=== PATIENT | female | born 2000 | race Caucasian/White ===

== ENCOUNTER 2020-03-19 12:00 | Emergency (ER) | payer BC, SELFPAY ==
[2020-03-19] VITALS (7 sets, daily range): BP systolic 105–133; BP diastolic 48–70; PULSE 52–86; RESP 14–18; TEMP 36.8; O2SAT 98–100
--- NOTE | ~2020-03-19 | CT_ITS ---
EXAMINATION: CT brain wo con INDICATION: Dizziness COMPARISON: None TECHNIQUE: Standard unenhanced head CT. The dose-length product (DLP) was 605.33 mGy-cm. The mA was a djusted according to patient size. Iterative reconstruction technique was employed. FINDINGS: There is no intracranial hemorrhage, acute infarction, or abnormal mass lesion. The ventric les are normal. There is no abnormal mass effect or midline shift. The liu-white matter differentiat ion is normal. The basal cisterns are patent. The orbits are normal. The paranasal sinuses, mastoids and calvarium are normal. IMPRESSION: 1. No acute intracranial abnormality. Reviewed, dictated and finalized at location A.
--- NOTE | ~2020-03-19 | XR_ITS ---
EXAMINATION: XR chest 2V DATE: 03/19/2020 12:46 INDICATION: Dizziness TECHNIQUE: PA and lateral views of the chest were obtained. COMPARISON: Chest radiograph dated 02/13/2017 FINDINGS: The lungs remain clear with no focal airspace opacities, pulmonary edema, pleural effusion or pneumot horax. The cardiomediastinal silhouette is normal. Visualized bones and soft tissues are unremarkable . Cholecystectomy clips in the right upper quadrant. IMPRESSION: 1. No acute cardiopulmonary disease. Reviewed, dictated and finalized at location A.
--- NOTE | ~2020-03-19 | US_ITS ---
EXAMINATION: US pelvic complete w TV DATE: 03/19/2020 13:27 INDICATION: Abnormal uterine bleeding TECHNIQUE: Multiple transabdominal and endovaginal sonographic images of the pelvis were obtained. COMPARISON: None. FINDINGS: The retroverted uterus measures 10.4 x 6.0 x 7.5 cm. Shadowing from a curved foreign body is seen wit hin the cephalad aspect of the vaginal vault along the posterior margin of the cervix consistent with a reported NUVA ring implant. The endometrial complex measures 15 mm in thickness. The right ovary m easures 2.7 x 1.6 x 1.6 cm. Vascular flow is identified in the right ovary on color Doppler. The left ovary is not visualized. There is no free fluid in the pelvis. IMPRESSION: 1. Normal uterus and right ovary. Left ovary is not visualized. 2. Foreign body consistent with NUVA ring contraceptive device in the vaginal vault. Reviewed, dictated and finalized at location A. IMPRESSION: 1. Normal uterus and right ovary. Left ovary is not visualized. 2. Foreign body consistent with NUVA ring contraceptive device in the vaginal v leon.
[2020-03-19 12:35] LABS: Basophils Percent Auto 0.5 % (0.2-1.2); Eosinophils Absolute Auto 0.1 K/mm3 (0-0.3); Eosinophils Percent Auto 1.3 % (0-4.4); Hematocrit 40.9 % (37.0-47.0); Hemoglobin 13.4 g/dL (12.0-15.0); Immature Granulocyte Absolute 0.02 K/mm3 (0.00-0.031); Immature Granulocyte Percent A 0.2 % (0-0.5); Lymphocytes Absolute Auto 2.36 K/mm3 (0.9-3.2); Lymphocytes Percent Auto 28.3 % (18.3-44.2); Mean Corpuscular HGB Conc 32.8 g/dl (32-36); Mean Corpuscular Hemoglobin 27.6 pg (26-34); Mean Corpuscular Volume 84.3 fl (80-100); Mean Platelet Volume 10.1 fl (7.4-10.4); Monocytes Absolute Auto 0.5 K/mm3 (0.1-0.6); Neutrophils Absolute Auto 5.3 K/mm3 (1.3-6.7); Neutrophils Percent Auto 63.7 % (45.5-73.1); Platelet Count Result 367 k/mm3 (150-375); Red Blood Count 4.85 M/mm3 (4.2-5.4); Red Cell Distribution Width 13.9 % (11.5-14.5); White Blood Count 8.3 K/mm3 (4.5-10.0)
--- NOTE | 2020-03-19 12:36 | ECG_ITS ---
Measurements Intervals [place] Rate: 59 P: 20 [place]: 175 QRS: 71 QRSD: 93 T: 45 QT: 403 QTc: 399 Interpretive Statements SINUS BRADYCARDIA WITH SINUS ARRHYTHMIA BORDERLINE ECG Electronically Signed On 03-19-2020 13:46:23 CDT by Juan Islas D.O.
[2020-03-19 12:39] LABS: Add Urine Microscopic? YES; Appearance Urine Clear (Clear); Bilirubin Urine Negative (Negative); Blood Urine Negative (Negative); Color Urine Yellow (Yellow); Glucose Urine UA Negative (Negative); Ketones Urine Negative (Negative); Leukocyte Esterase Ur Negative LEU/UL (Negative); Mucus Urine Few /lpf; Nitrate Urine Negative (Negative); Protein Urine 1+ mg/dL (Negative); RBC Urine 0-2 /hpf (0-2); Specific Grav Ur 1.026 (1.001-1.035); Squamous Epithelial Cell Urine Occasional /hpf (Few); Urobilinogen Urine Negative mg/dL (<2.0); WBC Urine 0-3 /hpf
[2020-03-19 12:49] LABS: INR 0.9
[2020-03-19 12:50] LABS: Partial Thromboplastin Time 25.8 SECONDS (22.3-36.8)
--- NOTE | 2020-03-19 12:51 | ED.PREGNANCY ---
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 Reports she had a baby 4 months ago vaginally. Reports for the last 2 weeks she has been having vaginal bleeding. Reports she does use the NuvaRing so this is abnormal for her. Reports last night she started to have pelvic cramping and noted she passed some tissue in the toilet. Thought that she might have had a miscarriage. Reports today she has had some dizziness, especially with certain head movement. Reports she has had problems with dizziness in the past. Denies fever, vision changes, vomiting, numbness or weakness. <Erna Santiago PA-C - Last Filed: 03/19/20 18:18> Related Data Allergies/Adverse reactions: Allergies Allergy/AdvReac Type Severity Reaction Status Date / Time No Known Allergies Allergy Unknown Verified 03/19/20 12:16 <SAMY Christine Last Filed: 03/19/20 18:18> Review of Systems Review of Systems: Narrative: CONSTITUTIONAL: Denies fever EYES: Denies visual changes CARDIOVASCULAR: Denies chest pain RESPIRATORY: Denies cough or dyspnea. GASTROINTESTINAL: Denies vomiting GENITOURINARY: Denies dysuria or hematuria. NEUROLOGIC: Denies headache, numbness, or weakness. <SAMY Christine Last Filed: 03/19/20 18:18> All systems reviewed & are unremarkable except as noted in HPI and below <Erna Santiago PA-C - Last Filed: 03/19/20 18:18> [facility] Past Medical History Medical History: Medical History (Updated 03/19/20 @ 18:15 by Erna Santiago PA-C) History of gastroesophageal reflux (GERD) <Erna Santiago PA-C - Last Filed: 03/19/20 18:18> Surgical History Surgical History: Surgical History (Updated 03/19/20 @ 12:59 by Erna Santiago PA-C) History of cholecystectomy <Erna Santiago PA-C - Last Filed: 03/19/20 18:18> Social History Social History: Social History (Updated 03/19/20 @ 12:59 by Erna Santiago PA-C) Smoking status: Current every day smoker Substance use type: marijuana Gender identity (if verbalized by the patient): Female <Erna Santiago PA-C - Last Filed: 03/19/20 18:18> Exam Narrative: Exam Narrative: GENERAL: Well-appearing, obese, and in no acute distress. HEAD: Normocephalic, atraumatic. EYES: PERRLA and EOMI. ENT: Nares clear, no rhinorrhea or epistaxis. Mucous membranes moist. Oropharynx without tonsillar hypertrophy exudate or other lesions. Bilateral TMs pearly liu non-bulging NECK: Supple. No adenopathy or masses. CHEST: Clear to auscultation. No respiratory distress. No wheezes rales or rhonchi HEART: Regular rate and rhythm. No murmur heard. Normal peripheral pulses. EXTREMITIES: Normal range of motion. No edema. SKIN: Warm, dry, no rash. NEURO: No focal deficits. Alert and oriented x3. Cranial nerves II through XII grossly intact. Normal [id number]. Normal [id number]-[id number]. Normal gait PSYCH: Normal mood and affect PELVIC: Mild redness and irritation of the labia majora. Normal appearing cervix, closed. Scant blood in the vaginal vault. No CMT <Erna Santiago PA-C - Last Filed: 03/19/20 18:18> Course Vital Signs Vital signs: Vital Signs Temperature 98.2 F 03/19/20 12:10 Pulse Rate 86 03/19/20 12:10 Respiratory Rate 18 03/19/20 12:10 Blood Pressure 133/61 03/19/20 12:10 Pulse Oximetry 99 03/19/20 12:10
[2020-03-19 12:52] LABS: Alanine Aminotransferase 25 U/L (4-35); Albumin Level 3.9 g/dL (3.5-5.1); Alkaline Phosphatase 81 U/L (38-126); Aspartate Amino Transferase 54 U/L (14-36); Bilirubin,Total 0.7 mg/dL (0.2-1.3); Blood Urea Nitrogen 9 mg/dL (7-17); Calcium 9.1 mg/dL (8.4-10.2); Carbon Dioxide 23 mmol/L (22-30); Chloride 105 mmol/L (98-107); Estimated CRCL calculation 151 ml/min; Estimated Glomerular Filt Rate > 60; Glucose 101 mg/dL (65-105); Sodium 137 mmol/L (137-145)
[2020-03-19] MEDS: MECLIZINE HCL 25 MG TABLET PO (13:00)
[2020-03-19] MEDS: SODIUM CHLORIDE 0.9% IV 1,000 ML 999 ML IV CONT ×2 (13:01→15:51)
[2020-03-19] MEDS: ONDANSETRON INJ 4 MG/2 ML VIAL IV PUSH (13:01)
--- NOTE | 2020-03-19 13:01 | PC.NURSE ---
Pt to U/S via stretcher, fluids infusing.
[2020-03-19 13:08] LABS: Beta HCG Quantitative < 2.39 mIU/ML
[2020-03-19] MEDS: LORAZEPAM INJ 2 MG/ML VIAL 1 MG IV PUSH (16:09)
== END 2020-03-19 18:42 | disposition home or self-care (01) ==
PROVIDERS: Physician Assistant; Emergency Provider Emergency Medicine
DX: N93.9 Abnormal uterine and vaginal bleeding, unspecified (principal); R42 Dizziness and giddiness; R00.1 Bradycardia, unspecified; F17.210 Nicotine dependence, cigarettes, uncomplicated; K21.9 Gastro-esophageal reflux disease without esophagitis
CPT/HCPCS: 36415; 70450; 71046; 76830; 76856; 80053; 81001; 81025; 84702; 85025; 85461; 85610; 85730; 87070; 87147; 87186; 87491; 87591; 87808; 93005; 96361; 96374; 96375; 99284; A9270; J2060; J2405; J7030

== ENCOUNTER 2020-05-15 14:13 | Emergency (ER) | payer BC, SELFPAY ==
[2020-05-15 14:26] VITALS: BP 123/56; PULSE 75; RESP 16; TEMP 36.8; O2SAT 99
--- NOTE | 2020-05-15 14:37 | ED.URI ---
HPI - URI/Sore Throat General Chief Complaint: Upper Respiratory Infection Stated Complaint: upper respiratory infection Time Seen by Provider: 05/15/20 14:27 Source: patient and RN notes reviewed Mode of arrival: ambulatory Limitations: no limitations History of Present Illness HPI Narrative: Patient presents today with a 2-day history of cough, left ear pain, nasal congestion. Denies fever, shortness of breath, nausea, vomiting, diarrhea. She took 1 dose of Sudafed and 1 dose of an antihistamine without relief. Patient smokes 0.25 packs/day. She tested negative for COVID-19 approximately 2 weeks ago. MD elicited complaint: cough Related Data Allergies Allergy/AdvReac Type Severity Reaction Status Date / Time No Known Allergies Allergy Unknown Verified 05/15/20 14:16 Review of Systems Review of Systems: Narrative: CONSTITUTIONAL: Denies body aches, fever, chills, or sweats. EYES: Denies visual changes, redness, or discharge. ENT: Denies rhinorrhea, sore throat.+ Nasal congestion, left ear pain CARDIOVASCULAR: Denies chest pain, palpitations, or edema. RESPIRATORY: Denies dyspnea. + Cough GASTROINTESTINAL: Denies abdominal pain, nausea, vomiting, or diarrhea. GENITOURINARY: Denies dysuria or hematuria. SKIN: Denies rash, itching, or wounds. MUSCULOSKELETAL: Denies back pain, joint pain, or myalgia. NEUROLOGIC: Denies headache, numbness, tingling, or weakness. PSYCH: Denies depression or anxiety. PMFSH Past Medical History Medical History (Updated 05/15/20 @ 14:41 by Elaine Hernandez, [facility]) History of gastroesophageal reflux (GERD) Surgical History Surgical History (Updated 03/19/20 @ 12:59 by Erna Santiago PA-C) History of cholecystectomy Social History Social History (Updated 03/19/20 @ 12:59 by Erna Santiago PA-C) Smoking status: Current every day smoker Substance use type: marijuana Gender identity (if verbalized by the patient): Female Comments At time of signature, I have reviewed and agree with nursing past medical, surgical, social and family history unless otherwise noted. Please see nursing chart for further information. There is no relevant family history pertinent to the presenting complaint Exam Narrative: Exam Narrative: GENERAL: Well-appearing, well-nourished, and in no acute distress. HEAD: Normocephalic, atraumatic. EYES: EOMI. No redness or drainage. Conjunctivae normal. ENT: Mucous membranes pink and moist. Nares mildly congested. No rhinorrhea. Right TM normal. Left TM erythematous and bulging with fluid. Throat normal. Uvula midline. NECK: Normal AROM. Supple. No lymphadenopathy. CHEST: No respiratory distress. Clear to auscultation. HEART: Regular rate and rhythm. No murmur appreciated. Normal peripheral pulses. EXTREMITIES: Normal range of motion. No edema. SKIN: Warm, dry, no rash. Capillary refill normal. Normal skin turgor. NEURO: No focal deficits. Alert and oriented x3. Gait steady. PSYCH: Normal affect. No signs of depression or anxiety. Course Vital Signs Vital signs: Vital Signs Temperature 98.3 F 05/15/20 14:26 Pulse Rate 75 05/15/20 14:26 Respiratory Rate 16 05/15/20 14:26 Blood Pressure 123/56 L 05/15/20 14:26 Pulse Oximetry 99 05/15/20 14:26 Temperature 98.3 F 05/15/20 14:26 Pulse Rate 75 05/15/20 14:26 Respiratory Rate 16 05/15/20 14:26 Blood Pressure 123/56 L 05/15/20 14:26 Pulse Oximetry 99 05/15/20 14:26 Reviewed. Pt has been instructed to follow up with her PCP regarding her elevated blood pressure today. MDM - URI/Sore Throat Differential Diagnosis Differential diagnosis: Likely upper respiratory infection, otitis media, sinusitis, viral infection and bronchitis Critical Care Time Critical Care Time Critical Care Time: No Discharge Plan Discharge Clinical Impression: Acute left otitis media Allergic rhinitis Qualifiers: Allergic rhinitis trigger: unspecified Allergic rhinitis sea
== END 2020-05-15 14:45 | disposition home or self-care (01) ==
PROVIDERS: Emergency Provider Nurse Practitioner
DX: H66.92 Otitis media, unspecified, left ear (principal); J30.9 Allergic rhinitis, unspecified; F17.200 Nicotine dependence, unspecified, uncomplicated; K21.9 Gastro-esophageal reflux disease without esophagitis; F12.90 Cannabis use, unspecified, uncomplicated
CPT/HCPCS: 99213; G0463

== ENCOUNTER 2020-08-18 18:30 | Emergency (ER) | payer BC, SELFPAY ==
--- NOTE | ~2020-08-18 | XR_ITS ---
EXAMINATION: XR chest 2V EXAM DATE: 08/18/2020 19:43 INDICATION: Cough and sore throat. TECHNIQUE: Frontal and lateral projections of the chest obtained and reviewed. Comparison is made to prior examination from 03/19/2020. FINDINGS: The lungs are clear. There are no pleural effusions. The cardiomediastinal silhouette is within normal limits. There is no pneumothorax suspected. The bones and soft tissues are unremarkab le. There are cholecystectomy clips. IMPRESSION: Normal chest x-ray exam. Reviewed, dictated and finalized at location A. IMPRESSION: Normal chest x-ray exam.
[2020-08-18 18:55] VITALS: BP 115/64; PULSE 72; RESP 20; TEMP 36.6; O2SAT 99
[2020-08-18 19:28] VITALS: O2SAT 100
--- NOTE | 2020-08-18 20:29 | ED.URI ---
HPI - URI/Sore Throat General Chief Complaint: Upper Respiratory Infection Stated Complaint: COUGH AND COLD S/SX Time Seen by Provider: 08/18/20 19:22 History of Present Illness HPI Narrative: Patient is a 20-year-old female who presents to the ER with cough and sore throat. Ongoing for last couple days. She has a baby who has similar symptoms. She reports she has not been exposed anybody with COVID-19. She has no fevers or chills or sweats. No difficulty swallowing. Cough is productive of sputum. No dyspnea. No loss of taste. Mild loss of smell due to sinus congestion. Related Data Allergies Allergy/AdvReac Type Severity Reaction Status Date / Time No Known Allergies Allergy Unknown Verified 05/15/20 14:16 Review of Systems Constitutional: Constitutional: Denies chills and Denies fever(s) ENT: Denies dizziness, Reports nasal congestion and Reports sore throat Respiratory: Respiratory: Reports cough, Denies dyspnea and Denies wheezing PMFSH Past Medical History Medical History (Updated 08/18/20 @ 20:33 by Kenneth Baeza MD) History of gastroesophageal reflux (GERD) Surgical History Surgical History (Updated 03/19/20 @ 12:59 by Erna Santiago PA-C) History of cholecystectomy Social History Social History (Updated 03/19/20 @ 12:59 by Erna Santiago PA-C) Smoking status: Current every day smoker Substance use type: marijuana Gender identity (if verbalized by the patient): Female Exam Narrative: Exam Narrative: GENERAL: Well-appearing, well-nourished, and in no acute distress. HEAD: Normocephalic, atraumatic ENT: Mucous membranes moist. Enlarged tonsils bilaterally without erythema or exudate. Normal uvula. CHEST: Clear to auscultation. No respiratory distress. HEART: Regular rate and rhythm. Normal peripheral pulses. EXTREMITIES: Normal range of motion. No edema. NEURO: Alert and oriented x3. PSYCH: Normal mood and affect. Course Course Emergency Course: Unremarkable exam and x-ray. Discharge home. Vital Signs Vital signs: Vital Signs Temperature 97.9 F 08/18/20 18:55 Pulse Rate 72 08/18/20 18:55 Respiratory Rate 20 08/18/20 18:55 Blood Pressure 115/64 08/18/20 18:55 Pulse Oximetry 99 10/16/20 18:55 Temperature 97.9 F 08/18/20 18:55 Pulse Rate 72 08/18/20 18:55 Respiratory Rate 20 08/18/20 18:55 Blood Pressure 115/64 08/18/20 18:55 Pulse Oximetry 99 08/18/20 18:55 Discharge Plan Discharge Clinical Impression: Upper respiratory infection Patient Disposition: Home, Self-Care Condition: Stable Instructions: Cold Symptoms (ED) Additional Instructions: Return the ER if you have fever over 100.4 ?F, he cannot breathe, he cannot keep down food or water, or have additional concerns. Prescriptions: New dextromethorphan-guaifenesin [Mucinex DM] 60-1,200 mg tablet extended release 12 hr 1 tablet PO Q12H Qty: 14 RF: 0 No Action amoxicillin 875 mg tablet 875 mg PO Q12H 10 Days Qty: 20 RF: 0 Follow-up/Referrals: PHYSICIAN,[facility] [Primary Care Provider] - 1 Week
[2020-08-18 20:45] VITALS: BP 118/57; PULSE 74; RESP 18; TEMP 36.9; O2SAT 100
== END 2020-08-18 20:47 | disposition home or self-care (01) ==
PROVIDERS: Emergency Provider Emergency Medicine
DX: J06.9 Acute upper respiratory infection, unspecified (principal); K21.9 Gastro-esophageal reflux disease without esophagitis; F17.200 Nicotine dependence, unspecified, uncomplicated
CPT/HCPCS: 71046; 99283

== ENCOUNTER 2020-09-05 12:09 | Emergency (ER) | payer OTHER, BC, SELFPAY ==
--- NOTE | ~2020-09-05 | XR_ITS ---
EXAMINATION: XR knee LT min 4V EXAM DATE: 09/05/2020 13:01 INDICATION: Left knee pain, injury . Initial encounter. TECHNIQUE: Left knee frontal, crosstable lateral, orthogonal oblique projections for interpretation. There is no prior study for comparison. FINDINGS: No evidence osteochondral defect or joint body in the left knee joint. There are no acute fractures or dislocations identified. There is no subcutaneous gas. The soft tissue is unremarkabl e. There are no radiopaque foreign bodies. No joint effusion. IMPRESSION: 1. XR knee LT min 4V exam without acute osseous findings. Reviewed, dictated and finalized at location B. [employer]LOAD DRIVER
[2020-09-05 12:30] VITALS: BP 138/65; PULSE 76; RESP 18; TEMP 36.2; O2SAT 96
[2020-09-05] MEDS: HYDROcodone/acetaminophen (*CRX) 5-325 MG TABLET 1 TAB PO (12:55)
--- NOTE | 2020-09-05 12:55 | ED.LOWEXIN ---
HPI - Extremity Injury (Lower) General Chief Complaint: Extremity Injury, Lower Stated Complaint: Knee Injury 09/02/20 Time Seen by Provider: 09/05/20 12:16 Source: patient Mode of arrival: ambulatory Limitations: no limitations History of Present Illness HPI Narrative: This is a 20-year-old female that presents to the emergency department for left knee pain after an injury 3 days ago. 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 Reports she was evaluated after this and started on an antibiotic for her dog bite. Reports the dog is up-to-date on vaccinations. Reports since she has had increasing left knee pain with weight bearing. Reports she feels like the knee gives out. Denies erythema, edema, weakness or numbness. Related Data Home Medications Medication Instructions Recorded Confirmed estradiol 2 mg PO DAILY 09/05/20 etonogestrel-ethinyl estradiol 1 vag ring VAGINAL 09/05/20 Allergies Allergy/AdvReac Type Severity Reaction Status Date / Time No Known Allergies Allergy Unknown Verified 09/05/20 12:40 Review of Systems Review of Systems: Narrative: CONSTITUTIONAL: Denies fever SKIN: Denies erythema or edema MUSCULOSKELETAL: Reports joint pain, and myalgia. NEUROLOGIC: Denies numbness, or weakness. All systems reviewed & are unremarkable except as noted in HPI and below PMFSH Past Medical History Medical History (Updated 09/05/20 @ 14:09 by Erna Santiago PA-C) History of gastroesophageal reflux (GERD) Surgical History Surgical History (Updated 03/19/20 @ 12:59 by Erna Santiago PA-C) History of cholecystectomy Social History Social History (Updated 03/19/20 @ 12:59 by Erna Santiago PA-C) Smoking status: Current every day smoker Substance use type: marijuana Gender identity (if verbalized by the patient): Female Exam Narrative: Exam Narrative: GENERAL: Well-appearing, well-nourished, and in no acute distress. HEAD: Normocephalic, atraumatic. EYES: EOMI. EXTREMITIES: Normal range of motion. No edema, erythema or obvious deformity. Normal DP pulses. Normal sensation SKIN: Warm, dry, no rash. No concerning abnormal drainage, erythema or edema surrounding wound to the right calf NEURO: No focal deficits. Alert and oriented x3. PSYCH: Normal mood and affect Course Vital Signs Vital signs: Vital Signs Temperature 97.2 F L 09/05/20 12:30 Pulse Rate 76 09/05/20 12:30 Respiratory Rate 18 09/05/20 12:30 Blood Pressure 138/65 09/05/20 12:30 Pulse Oximetry 96 09/05/20 12:30 Temperature 97.2 F L 09/05/20 12:30 Pulse Rate 76 09/05/20 12:30 Respiratory Rate 18 09/05/20 12:30 Blood Pressure 138/65 09/05/20 12:30 Pulse Oximetry 96 09/05/20 12:30 MDM - Extremity Injury (Lower) MDM Narrative Medical decision making narrative: Patient presents to the ER for left knee pain after an injury 3 days ago. Left knee XR is without acute findings. Patient also had a dog bite on the right lower extremity which she was seen for and is currently on antibiotics. No obvious signs of infection. Patient instructed on care of knee sprain. She is to follow up with orthopedics. She was given warnings to return to the ER Imaging Data Radiologist's impression: ITS Impressions Knee X-Ray 09/05/20 13:07 IMPRESSION: 1. XR knee LT min 4V exam without acute osseous findings. Critical Care Time Critical Care Time Critical Care Time: No Discharge Plan Discharge Clinical Impression: Left knee sprain Qualifiers: Encounter type: initial encounter Involved ligament of knee: unspecified ligament Qualified Code(s): S83.92XA - Sprain of unspecified site of left knee, initial encounter Patient Disposition: Home, Self-Care Condition: Stable Instructions: Knee Sprain (ED) Additional Instructions: Return to the emergency department if you experience fever, redness and swelling of your leg, or any other symptoms that are concerning to yo
[2020-09-05 14:40] VITALS: BP 116/66; PULSE 60; RESP 18; O2SAT 98
== END 2020-09-05 14:40 | disposition home or self-care (01) ==
PROVIDERS: Emergency Provider Emergency Medicine
DX: S83.92XA Sprain of unspecified site of left knee, initial encounter (principal); K21.9 Gastro-esophageal reflux disease without esophagitis; F17.200 Nicotine dependence, unspecified, uncomplicated; W22.8XXA Striking against or struck by other objects, initial encounter
CPT/HCPCS: 73564; 99283; A9270

== ENCOUNTER 2020-11-16 10:42 | Emergency (ER) | payer BC, SELFPAY ==
[2020-11-16 11:27] VITALS: BP 119/65; PULSE 99; RESP 18; TEMP 37.1; O2SAT 99
[2020-11-16] MEDS: IBUPROFEN 600 MG TABLET PO (12:42)
[2020-11-16] MEDS: DEXAMETHASONE SOD PHOS INJ 4 MG/ML VIAL 10 MG IM (12:42)
--- NOTE | 2020-11-16 12:45 | ED.GENADULT ---
HPI - General Adult General Chief complaint: Unspecified Stated complaint: sore throat Time Seen by Provider: 11/16/20 11:37 Source: patient Mode of arrival: ambulatory Limitations: no limitations History of Present Illness HPI narrative: Patient 20-year-old female is presents with several days of sore throat nonproductive cough aching of the chest with coughing congestion rhinorrhea and subjective fever with chills and fatigue. Patient denies vomiting or diarrhea Related Data Home Medications Medication Instructions Recorded Confirmed estradiol 2 mg PO DAILY 09/05/20 09/13/20 etonogestrel-ethinyl estradiol 1 vag ring VAGINAL 09/05/20 09/13/20 Allergies Allergy/AdvReac Type Severity Reaction Status Date / Time No Known Allergies Allergy Unknown Verified 11/16/20 11:33 Review of Systems Review of Systems: All systems reviewed & are unremarkable except as noted in HPI and below PMFSH Past Medical History Medical History History of gastroesophageal reflux (GERD) Surgical History Surgical History History of cholecystectomy Social History Social History Smoking status: Current every day smoker Substance use type: marijuana Gender identity (if verbalized by the patient): Female Exam Narrative: Exam Narrative: GENERAL: Ill-appearing, well-nourished, and in no acute distress. HEAD: Normocephalic, atraumatic. EYES: PERRLA and EOMI. ENT: Nares clear, no rhinorrhea or epistaxis. Mucous membranes moist. Oropharynx with tonsillar hypertrophy and exudate uvula midline no trismus or drooling floor of the mouth is soft CHEST: Clear to auscultation. No respiratory distress. No wheezes rales or rhonchi HEART: Regular rate and rhythm. No murmur heard. SKIN: Warm, dry, no rash. NEURO: No focal deficits. Alert and oriented x3. PSYCH: Normal mood and affect. Course Course Emergency Course: Patient in the room at this time will be treated for strep pharyngitis given medications in the emergency department referred to ENT advised to hydrate felt appropriate for outpatient reevaluation given strict reasons to return Vital Signs Vital signs: Vital Signs Temperature 98.7 F 11/16/20 11:27 Pulse Rate 99 11/16/20 11:27 Respiratory Rate 18 11/16/20 11:27 Blood Pressure 119/65 11/16/20 11:27 Pulse Oximetry 99 11/16/20 11:27 Temperature 98.7 F 11/16/20 11:27 Pulse Rate 99 11/16/20 11:27 Respiratory Rate 18 11/16/20 11:27 Blood Pressure 119/65 11/16/20 11:27 Pulse Oximetry 99 11/16/20 11:27 Medical Decision Making MDM Narrative Medical decision making narrative: ABCs intact vital signs stable felt appropriate for outpatient reevaluation given reasons to return will be treated for strep pharyngitis Vital Signs Vital Signs: Vital Signs Temperature 98.7 F 11/16/20 11:27 Pulse Rate 99 11/16/20 11:27 Respiratory Rate 18 11/16/20 11:27 Blood Pressure 119/65 11/16/20 11:27 Pulse Oximetry 99 11/16/20 11:27 Temperature 98.7 F 11/16/20 11:27 Pulse Rate 99 11/16/20 11:27 Respiratory Rate 18 11/16/20 11:27 Blood Pressure 119/65 11/16/20 11:27 Pulse Oximetry 99 11/16/20 11:27 Lab Data Labs: Influenza A Screen Negative Reference Range: Negative Influenza B Screen Negative Reference Range: Negative Strep Screen Positive Group A Strep *(Reference Range: Negative)* Discharge Plan Discharge Clinical Impression: Acute streptococcal pharyngitis Patient Disposition: Home, Self-Care Condition: Stable Instructions: Antibiotic Form, Strep Throat (ED) Additional Instructions: Follow up with your primary c
[2020-11-16 13:15] VITALS: BP 122/66; PULSE 89; RESP 15; O2SAT 100
== END 2020-11-16 13:18 | disposition home or self-care (01) ==
PROVIDERS: Emergency Provider Emergency Medicine
DX: J02.0 Streptococcal pharyngitis (principal); K21.9 Gastro-esophageal reflux disease without esophagitis
CPT/HCPCS: 87804; 87880; 96372; 99283; A9270; J1100

== ENCOUNTER 2021-04-30 12:29 | Emergency (ER) | payer BC, SELFPAY ==
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
[2021-04-30 12:53] VITALS: BP 117/70; PULSE 107; RESP 20; TEMP 38; O2SAT 99
--- NOTE | 2021-04-30 13:56 | PC.NURSE ---
patient found diaphoritic and difficult to arouse while rounding on patient. patient transfered to room 9 to be monitored. report to abdirahman Vallejo
--- NOTE | 2021-04-30 14:19 | PC.NURSE ---
Assumed care of pt, went into room to start IV/labs, pt uncooperative, jerked arm away and states That hurts so bad, stop. Im leaving. Pt tearful. States no longer wants to be seen. EDP Dr Baeza made aware. Pt has not been seen by a provider at this point. Pt states has a ride, will be taken out to w/r via w/c. VSS. Pt has belongings.
--- NOTE | 2021-04-30 14:39 | PC.NURSE ---
PCP discussed POC w/ pt and pt is agreeable to IV/Labs.
[2021-04-30 14:46] LABS: Basophils Absolute Auto 0.1 K/mm3 (0.0-0.1); Basophils Percent Auto 0.3 % (0.2-1.2); Eosinophils Absolute Auto 0.1 K/mm3 (0-0.3); Eosinophils Percent Auto 0.7 % (0-4.4); Hematocrit 45.5 % (37.0-47.0); Hemoglobin 14.6 g/dL (12.0-15.0); Immature Granulocyte Absolute 0.05 K/mm3 (0.00-0.031); Immature Granulocyte Percent A 0.3 % (0-0.5); Lymphocytes Absolute Auto 1.76 K/mm3 (0.9-3.2); Lymphocytes Percent Auto 10.8 % (18.3-44.2); Mean Corpuscular HGB Conc 32.1 g/dl (32-36); Mean Corpuscular Hemoglobin 29.3 pg (26-34); Mean Corpuscular Volume 91.2 fl (80-100); Mean Platelet Volume 10.2 fl (7.4-10.4); Monocytes Absolute Auto 0.7 K/mm3 (0.1-0.6); Neutrophils Absolute Auto 13.7 K/mm3 (1.3-6.7); Neutrophils Percent Auto 83.9 % (45.5-73.1); Platelet Count Result 277 k/mm3 (150-375); Red Blood Count 4.99 M/mm3 (4.2-5.4); Red Cell Distribution Width 12.9 % (11.5-14.5); White Blood Count 16.3 K/mm3 (4.5-10.0)
[2021-04-30] MEDS: Please add drug allergy info to patient profile. 1 EACH XX (14:51)
[2021-04-30] MEDS: ACETAMINOPHEN 500 MG TABLET 1000 MG PO (14:51)
[2021-04-30 14:53] VITALS: BP 114/62; PULSE 87; RESP 15; O2SAT 97
[2021-04-30 14:57] LABS: Lactic Acid Reflex 1.2 mmol/L (0.7-2.1)
[2021-04-30 15:50] VITALS: BP 114/72; PULSE 92; RESP 18; O2SAT 100
[2021-04-30] MEDS: ceFAZolin SODIUM 1 GM VIAL IV PUSH (15:50)
[2021-04-30 16:21] LABS: Alanine Aminotransferase 40 U/L (4-35); Alkaline Phosphatase 85 U/L (38-126); Anion Gap 7 mmol/L (8-16); Aspartate Amino Transferase 30 U/L (14-36); Bilirubin,Total 0.7 mg/dL (0.2-1.3); Blood Urea Nitrogen 6 mg/dL (7-17); CRP 2.6 mg/dL (<1.0); Calcium 9.4 mg/dL (8.4-10.2); Carbon Dioxide 25 mmol/L (22-30); Chloride 105 mmol/L (98-107); Estimated Glomerular Filt Rate > 60; Glucose 94 mg/dL (65-105); Sodium 137 mmol/L (137-145)
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
[2021-04-30 17:13] VITALS: BP 114/70; PULSE 91; RESP 14; O2SAT 98
== END 2021-04-30 17:26 | disposition home or self-care (01) ==
PROVIDERS: Emergency Provider General Practice
DX: L03.113 Cellulitis of right upper limb (principal)
CPT/HCPCS: 36415; 73110; 80053; 83605; 85025; 86140; 96374; 99284; A9270; J0690

== ENCOUNTER 2021-05-18 18:36 | Emergency (ER) | payer BC, OTHER, SELFPAY ==
[2021-05-18 18:44] VITALS: BP 136/63; PULSE 94; RESP 18; TEMP 36; O2SAT 100
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
--- NOTE | 2021-05-18 19:32 | PC.NURSE ---
Lila from Call for Help here, asks SEWING MACHINE BOBBIN WINDER to step out of room briefly. Pt's rights and choices for medical forensic exam explained to patient and pt agrees.
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
[2021-05-18] MEDS: ONDANSETRON HCL ODT 4 MG TABLET PO (22:55)
[2021-05-18] MEDS: ACETAMINOPHEN 500 MG TABLET 1000 MG PO (22:55)
[2021-05-18] MEDS: LIDOCAINE HCL 1% LOCAL INJ 20 ML VIAL 2.1 ML XX (22:57)
[2021-05-18] MEDS: cefTRIAXone 1 GM VIAL 0.5 GM IM (22:57)
[2021-05-18] MEDS: levonorgestreL 1.5 MG TABLET PO (22:59)
[2021-05-18] MEDS: AZITHROMYCIN 250 MG TABLET 1000 MG PO (22:59)
[2021-05-18] MEDS: metroNIDAZOLE 250 MG TABLET 2000 MG PO (23:00)
--- NOTE | 2021-05-18 23:00 | PC.NURSE ---
Pt given boxed lunch to eat, given meds po for headache. Preparing to take patient to private area for shower. States has her own shampoo.
--- NOTE | 2021-05-18 23:10 | PC.NURSE ---
Pt to [facility] with assist of CHRISTA Ayala to take a shower.
--- NOTE | 2021-05-18 23:30 | PC.NURSE ---
Spoke with [facility] Department @ [phone] to make a report. Report # received.
--- NOTE | 2021-05-19 00:30 | PC.NURSE ---
Kit, urine, and two extra bags given to Patrolavelino Alberto with the [facility]'s Department.
== END 2021-05-18 23:58 | disposition home or self-care (01) ==
PROVIDERS: Emergency Provider Emergency Medicine
DX: T74.21XA Adult sexual abuse, confirmed, initial encounter (principal); Y07.9 Unspecified perpetrator of maltreatment and neglect
CPT/HCPCS: 81025; 96372; 99285; A9270; J0696

== ENCOUNTER 2021-09-24 17:29 | Emergency (ER) | payer BC, SELFPAY ==
--- NOTE | ~2021-09-24 | XR_ITS ---
EXAMINATION: XR chest 2V 09/24/2021 18:15 INDICATION: Midsternal chest pain PROCEDURE: 2 view chest COMPARISON: 08/18/2020 FINDINGS: The lungs are clear. The cardiomediastinal silhouette is within normal limits. There are no pleural effusions. There is no pneumothorax suspected. There are cholecystectomy clips. IMPRESSION: 1: NO ACUTE CARDIOPULMONARY DISEASE. Reviewed, dictated and finalized at location A. NESS CONSULTANT
--- NOTE | 2021-09-24 17:36 | ECG_ITS ---
Measurements Intervals [place] Rate: 100 P: 68 GA: 164 QRS: 86 QRSD: 89 T: 37 QT: 350 QTc: 452 Interpretive Statements SINUS TACHYCARDIA NONSPECIFIC T-WAVE ABNORMALITY- INFERIOR LEADS BORDERLINE ECG Electronically Signed On 09-24-2021 20:10:22 SCHOOL PSYCHOLOGICAL EXAMINER by Juan Islas D.O.
[2021-09-24 17:52] VITALS: BP 107/64; PULSE 110; RESP 18; TEMP 35.8; O2SAT 100
[2021-09-24 18:00] LABS: Basophils Absolute Auto 0.1 K/mm3 (0.0-0.1); Basophils Percent Auto 0.8 % (0.2-1.2); Eosinophils Absolute Auto 0.2 K/mm3 (0-0.3); Eosinophils Percent Auto 2.1 % (0-4.4); Hematocrit 41.5 % (37.0-47.0); Hemoglobin 13.9 g/dL (12.0-15.0); Immature Granulocyte Absolute 0.01 K/mm3 (0.00-0.031); Immature Granulocyte Percent A 0.1 % (0-0.5); Lymphocytes Absolute Auto 3.43 K/mm3 (0.9-3.2); Lymphocytes Percent Auto 41.6 % (18.3-44.2); Mean Corpuscular HGB Conc 33.5 g/dl (32-36); Mean Corpuscular Hemoglobin 30.8 pg (26-34); Mean Platelet Volume 9.9 fl (7.4-10.4); Monocytes Absolute Auto 0.5 K/mm3 (0.1-0.6); Monocytes Percent Auto 5.8 % (2.6-8.5); Neutrophils Absolute Auto 4.1 K/mm3 (1.3-6.7); Neutrophils Percent Auto 49.6 % (45.5-73.1); Platelet Count Result 262 k/mm3 (150-375); Red Blood Count 4.51 M/mm3 (4.2-5.4); Red Cell Distribution Width 12.6 % (11.5-14.5); White Blood Count 8.3 K/mm3 (4.5-10.0)
[2021-09-24 18:10] LABS: Prothrombin Time 12.6 Seconds (11.1-14.7)
[2021-09-24 18:11] LABS: Partial Thromboplastin Time 29.9 SECONDS (22.3-36.8)
[2021-09-24 18:15] LABS: Alanine Aminotransferase 22 U/L (4-35); Alkaline Phosphatase 80 U/L (38-126); Anion Gap 6 mmol/L (8-16); Aspartate Amino Transferase 29 U/L (14-36); Bilirubin,Total 0.7 mg/dL (0.2-1.3); Blood Urea Nitrogen 12 mg/dL (7-17); Calcium 9.6 mg/dL (8.4-10.2); Carbon Dioxide 28 mmol/L (22-30); Chloride 103 mmol/L (98-107); Estimated CRCL calculation 116 ml/min; Estimated Glomerular Filt Rate > 60; Glucose 111 mg/dL (65-110); Lipase 77 U/L (23-300); Potassium 3.8 mmol/L (3.4-5.0); Sodium 137 mmol/L (137-145)
[2021-09-24 18:26] LABS: Troponin I < 0.012 ng/mL (0.000-0.034)
--- NOTE | 2021-09-24 19:12 | PC.NURSE ---
states chest feels like pressure or congestion also c/o abd pain and sore throat
[2021-09-24 19:25] VITALS: BP 113/74; PULSE 91; RESP 18; O2SAT 100
--- NOTE | 2021-09-24 20:45 | ED.GENADULT ---
HPI - General Adult General Chief complaint: Chest Pain Stated complaint: chest pain Time Seen by Provider: 09/24/21 18:52 Source: patient Mode of arrival: ambulatory Limitations: no limitations History of Present Illness HPI narrative: 21-year-old female with no significant past medical history complaining of throat pain worse with swallowing for the past week, constipation chronic per patient. Unknown fever, no cough no shortness of breath no hemoptysis no leg swelling. No chest pain currently. No known sick contacts. No nausea no vomiting tolerating p.o. Drinking and eating [employer]bour[employer] in the room Related Data Home Medications Medication Instructions Recorded Confirmed estradiol 2 mg PO DAILY 09/05/20 09/13/20 etonogestrel-ethinyl estradiol 1 vag ring VAGINAL 09/05/20 09/13/20 Allergies Allergy/AdvReac Type Severity Reaction Status Date / Time No Known Allergies Allergy Unknown Verified 11/16/20 11:33 Review of Systems Review of Systems: CONSTITUTIONAL: subjective fever, no weight loss, no confusion EYES: no vision changes, no eye pain ENT: no rhinorrhea, positive sore throat, pain with swallowing CARDIOVASCULAR: no chest pain, no leg edema, no palpitations RESPIRATORY: no cough, no shortness of breath, no hemoptysis GASTROINTESTINAL: epigastric pain, no nausea, no vomiting, positive for constipation GENITOURINARY: no flank pain, no dysuria, no hematuria SKIN: no rash, no jaundice MUSCULOSKELETAL: no back pain, no trauma. NEUROLOGIC: No headache, no dizziness, no focal weakness PSYCHIATRIC: No hallucinations, no suicidal ideation PMFSH Past Medical History Medical History History of gastroesophageal reflux (GERD) Surgical History Surgical History History of cholecystectomy Social History Social History Smoking status: Current every day smoker Substance use type: marijuana Gender identity (if verbalized by the patient): Female Exam Narrative: General: alert, afebrile, answering all questions appropriately Head: normocephalic, atraumatic Eyes: EOMI bilaterally, anicteric, no injection ENT: moist mucous membranes, B tonsils enlarged no exudate, uvula midline Neck: supple, trachea midline, no JVD Chest: equal chest rise bilaterally, no chest wall trauma noted Lungs: clear to auscultation bilaterally, respirations unlabored CV: regular rate, no MARIOLA B, calf size equal bilaterally Abd: soft, non-distended, mild epigastric tend, no rebound, no gaurding, negative Velazco's EXT: no deformity noted, moving all extremities equally Skin: warm, dry, no pallor Neuro: alert, oriented x 3; CN 2-12 grossly intact, no dysarthria Psych: affect appropriate, though content normal Course Vital Signs Vital signs: Vital Signs Temperature 35.8 C L 09/24/21 17:52 Pulse Rate 110 H 09/24/21 17:52 Respiratory Rate 18 09/24/21 17:52 Blood Pressure 107/64 09/24/21 17:52 Pulse Oximetry 100 09/24/21 17:52 Temperature 35.8 C L 09/24/21 17:52 Pulse Rate 91 09/24/21 19:25 Respiratory Rate 18 09/24/21 19:25 Blood Pressure 113/74 09/24/21 19:25 Pulse Oximetry 100 09/24/21 19:25 Medical Decision Making MDM Narrative Medical decision making narrative: Patient with no chest pain, does complain of sore throat worse with swallowing. Subjective fever constipation and chronic abdominal pain. No nausea no vomiting tolerating p.o. eating and drinking Barbour[employer] in the room. Differential Diagnosis Differential Diagnosis: Strep throat, tonsillitis, viral syndrome, constipation, GERD, gastritis, pancreatitis, pleuritic chest pain, pleural effusion, pneumonia, Medical Records Medical records reviewed: Yes I reviewed the external patient's medical records. Vital Signs Vital Signs: Vital Signs Temperature 35.8 C L 09/24/21 17:52 Pulse R
[2021-09-24 21:34] VITALS: BP 117/69; PULSE 86; RESP 18; O2SAT 100
== END 2021-09-24 21:35 | disposition home or self-care (01) ==
PROVIDERS: Emergency Medicine; Emergency Provider Emergency Medicine
DX: J03.90 Acute tonsillitis, unspecified (principal); R10.9 Unspecified abdominal pain; K21.9 Gastro-esophageal reflux disease without esophagitis; F17.200 Nicotine dependence, unspecified, uncomplicated; R00.0 Tachycardia, unspecified; R94.31 Abnormal electrocardiogram [ECG] [EKG]
CPT/HCPCS: 36415; 71046; 80053; 83690; 84484; 85025; 85610; 85730; 93005; 99284

== ENCOUNTER 2022-11-02 22:33 | Emergency (ER) | payer BC, SELFPAY ==
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
[2022-11-02 22:40] VITALS: BP 107/58; PULSE 73; RESP 16; TEMP 36.8; O2SAT 98
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
[2022-11-02 23:12] VITALS: O2SAT 100
[2022-11-02 23:15] VITALS: O2SAT 99
[2022-11-02 23:16] VITALS: BP 103/53; O2SAT 99
[2022-11-02 23:35] LABS: Basophils Absolute Auto 0.1 K/mm3 (0.0-0.1); Basophils Percent Auto 0.8 % (0.2-1.2); Eosinophils Absolute Auto 0.1 K/mm3 (0-0.3); Hematocrit 36.4 % (37.0-47.0); Hemoglobin 11.9 g/dL (12.0-15.0); Mean Corpuscular HGB Conc 32.7 g/dl (32-36); Mean Corpuscular Hemoglobin 29.8 pg (26-34); Monocytes Absolute Auto 0.4 K/mm3 (0.1-0.6); Monocytes Percent Auto 7.3 % (2.6-8.5); Neutrophils Absolute Auto 2.4 K/mm3 (1.3-6.7); Neutrophils Percent Auto 40.9 % (45.5-73.1); Platelet Count Result 333 k/mm3 (150-375); Red Cell Distribution Width 11.9 % (11.5-14.5); White Blood Count 5.9 K/mm3 (4.5-10.0)
[2022-11-02 23:49] LABS: Ethanol < 10 mg/dL (<10)
[2022-11-03] VITALS (11 sets, daily range): BP systolic 97–121; BP diastolic 45–65; PULSE 65; RESP 15; O2SAT 97–99
[2022-11-03] LABS: INR 1.1; Prothrombin Time 13.3 Seconds (11.1-14.7)
[2022-11-03 00:01] LABS: Partial Thromboplastin Time 26.8 SECONDS (22.3-36.8)
[2022-11-03 00:28] LABS: Add Urine Microscopic? YES; Appearance Urine Clear (Clear); Bilirubin Urine Negative (Negative); Blood Urine Trace-Intact (Negative); Color Urine Yellow (Yellow); Glucose Urine UA Negative (Negative); Ketones Urine Negative (Negative); Leukocyte Esterase Ur Trace LEU/UL (Negative); Nitrate Urine Negative (Negative); Protein Urine Negative (Negative); Urobilinogen Urine 0.2 mg/dL (<2.0)
[2022-11-03 00:31] LABS: Mucus Urine Few /lpf; Squamous Epithelial Cell Urine Few /hpf (Few); WBC Urine 21-30 /hpf
[2022-11-03 00:47] LABS: Barbiturate Screen Urine Negative (Negative); Benzodiazepines Screen Urine Negative (Negative)
[2022-11-03 00:49] LABS: Cannabinoid Screen Urine Positive (Negative); Cocaine Screen Urine Negative (Negative); Methadone Screen Urine Negative (Negative); Opiate Screen Urine Negative (Negative); Phencyclidine Screen Urine Negative (Negative)
[2022-11-03 01:49] LABS: Amphetamine Screen Urine Positive (Negative)
[2022-11-03 02:10] LABS: Alanine Aminotransferase 71 U/L (6-35); Albumin Level 4.1 g/dL (3.5-5.1); Alkaline Phosphatase 70 U/L (38-126); Anion Gap 6 mmol/L (8-16); Aspartate Amino Transferase 54 U/L (14-36); Bilirubin,Total 1.5 mg/dL (0.2-1.3); Blood Urea Nitrogen 9 mg/dL (7-17); Calcium 8.6 mg/dL (8.4-10.2); Carbon Dioxide 26 mmol/L (22-30); Chloride 105 mmol/L (98-107); Estimated CRCL calculation 102 ml/min; Estimated Glomerular Filt Rate > 60; Glucose 98 mg/dL (65-110); Potassium 3.9 mmol/L (3.4-5.0); Sodium 137 mmol/L (137-145)
== END 2022-11-03 06:33 | disposition home or self-care (01) ==
PROVIDERS: Emergency Provider Physician Assistant
DX: R07.89 Other chest pain (principal); S29.9XXA Unspecified injury of thorax, initial encounter; F15.90 Other stimulant use, unspecified, uncomplicated; K21.9 Gastro-esophageal reflux disease without esophagitis; F17.200 Nicotine dependence, unspecified, uncomplicated; V86.55XA Driver of 3- or 4- wheeled all-terrain vehicle (ATV) injured in nontraffic accident, initial encounter
CPT/HCPCS: 36415; 70450; 71260; 72125; 72129; 72132; 73564; 74177; 80053; 80307; 81001; 81025; 85025; 85610; 85730; 87086; 87088; 96365; 99284; J0131; Q9967

== ENCOUNTER 2023-04-13 18:15 | Emergency (ER) | payer BC, SELFPAY ==
[2023-04-13 18:22] VITALS: BP 117/50; PULSE 75; RESP 16; TEMP 36.3; O2SAT 97
--- NOTE | 2023-04-13 18:30 | ECG_ITS ---
Measurements Intervals [place] Rate: 102 P: 74 MT: 161 QRS: 90 QRSD: 90 T: 61 QT: 329 QTc: 429 Interpretive Statements SINUS TACHYCARDIA RIGHTWARD AXIS NONSPECIFIC T-WAVE ABNORMALITY ABNORMAL RHYTHM ECG COMPARED TO ECG 09/24/2021 17:42:16 NO SIGNIFICANT CHANGE Electronically Signed On 04-14-2023 11:19:25 CDT by Madi Fairchild M.D.
--- NOTE | 2023-04-13 19:27 | PC.NURSE ---
pt. called to be taken back to a room. 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 Pt. NAD upon departure.
== END 2023-04-13 19:33 | disposition left against medical advice (07) ==
PROVIDERS: Emergency Provider Emergency Medicine
DX: R40.4 Transient alteration of awareness (principal)
CPT/HCPCS: 93005; 99199